=== PATIENT | male | born 1955 | race Caucasian/White ===

== ENCOUNTER 2017-02-04 08:32 | Day surgery (SDC) | payer OTHER ==
[~2017-02-04 08:32] MED LIST: LACTATED RINGERS 1,000 ML IV SCH
[2017-02-04] MEDS ORDERED: IV START KIT ONE (08:59)
[2017-02-04] MEDS ORDERED: LACTATED RINGERS 1,000 ML ONE (08:59)
[2017-02-04] MEDS ORDERED: PROPOFOL 20 ML IV ONE (10:10)
--- NOTE | 2017-02-06 10:44 | SURGPATH ---
[facility] [address] [place] [id number] Patient Name: CATHY MCKEON MR#: [id number] : 1955 Gender: M Specimen #: [id number] Collected: 02/04/2017 Received: 02/05/2017 Reported: 02/06/2017 Submitting Phys: JHONY NEGRON Copy To Phys: [facility] ELANA BOLDEN Clinical History / Pre-Operative Diagnosis: SURVEILLANCE Specimen Source / Surgical Procedure Performed: SPLENIC FLEXURE COLON POLYP Interpretation: SPLENIC FLEXURE COLON POLYP, POLYPECTOMY: - TUBULAR ADENOMA Electronically Signed Out Vj Wood M.D. Gross Description: The specimen is received in a formalin filled container labeled with the patient's name and "splenic flexure colon polyp". A polypoid acevedo biopsy is 0.7 x 0.5 x 0.4 cm. Bisected. Totally embedded in one cassette. Robbin Luke Microscopic Description: The sections show colonic mucosa exhibiting adenomatous change with a tubular architectural pattern. The changes are characterized by nuclear stratification and hyperchromasia with increased mitotic activity. High-grade dysplasia is not identified. 1: 41612 D12.3
== END 2017-02-04 10:38 | disposition home or self-care (01) ==
LOC: SDC 08:32
PROVIDERS: ATTEND Internal Medicine Gastroenterology
PROC: 0DBL8ZZ Excision of Transverse Colon, Via Natural or Artificial Opening Endoscopic (ICD-10-PCS; principal; 2017-02-04)
DX: Z12.11 Encounter for screening for malignant neoplasm of colon (principal); D12.3 Benign neoplasm of transverse colon; K57.30 Diverticulosis of large intestine without perforation or abscess without bleeding; F17.210 Nicotine dependence, cigarettes, uncomplicated; G47.33 Obstructive sleep apnea (adult) (pediatric); I10 Essential (primary) hypertension; E78.5 Hyperlipidemia, unspecified; E66.9 Obesity, unspecified; Z79.899 Other long term (current) drug therapy; Z88.8 Allergy status to other drugs, medicaments and biological substances